=== PATIENT | female | born 1955 | race Caucasian/White ===

== ENCOUNTER 2023-06-01 17:33 | Emergency (ER) | payer OTHER ==
[~2023-06-01] VITALS: Ht 160 cm; Wt 88.2 kg
[2023-06-01] MEDS ORDERED: ketorolac trometh inj. 60 MG/2 ML VIAL IM ONE (19:55)
[2023-06-01] MEDS ORDERED: NAPR-56 PO (19:55)
--- NOTE | 2023-06-01 20:11 | NUR ---
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 PAGED AGAIN @ 20:12.
[2023-06-01 20:58] VITALS: BP 158/80; PULSE 79; RESP 18; TEMP 98.4; O2SAT 99
--- NOTE | 2023-06-01 21:12 | NUR ---
AGREE WITH DIETETIC TECHNICIAN ASSESSMENT AFTER REVIEW.
== END 2023-06-01 20:59 | disposition home or self-care (01) ==
LOC: ER 17:34
DX: S52.502A Unspecified fracture of the lower end of left radius, initial encounter for closed fracture (principal); X58.XXXA Exposure to other specified factors, initial encounter; Y93.89 Activity, other specified; Y92.89 Other specified places as the place of occurrence of the external cause; Y99.8 Other external cause status
CPT/HCPCS: 29125; 73110; 96372; 99284; J1885; A4565; A6449

== ENCOUNTER 2024-03-02 17:15 | Emergency (ER) | payer OTHER ==
[~2024-03-02] VITALS: Ht 160 cm; Wt 77.3 kg
[2024-03-02] MEDS ORDERED: HYDR-3965 PO (18:44)
[2024-03-02 19:40] VITALS: BP 132/76; PULSE 65; RESP 16; TEMP 98.2; O2SAT 97
== END 2024-03-02 19:43 | disposition home or self-care (01) ==
LOC: ER 17:18
DX: S52.591A Other fractures of lower end of right radius, initial encounter for closed fracture (principal); W18.39XA Other fall on same level, initial encounter; Y93.89 Activity, other specified; Y92.89 Other specified places as the place of occurrence of the external cause; Y99.8 Other external cause status
CPT/HCPCS: 29125; 99283